=== PATIENT | male | born 1960 | race Caucasian/White ===

== ENCOUNTER → 2017-12-31 | Outpatient (CLI) | payer OTHER ==
[~2017-12-31] VITALS: Ht 182.9 cm; Wt 131.5 kg
[~2017-12-31] MED LIST: AMBIEN10 MG PO; GLUCOPHAGE1000 MG PO; LIPITOR40 MG PO; LITE COAT ASPI325 M1 PO; LOPRESSOR25 MG PO; MAGNESIUM400 M1 PO; POTASSIUM-9999 MG PO; TRULICITY1.5 MG/0.5 SC; ZANTAC300 MG PO
== END | disposition home or self-care (01) ==
LOC: AMB 12:30
PROVIDERS: Internal Medicine Gastroenterology
DX: K29.50 Unspecified chronic gastritis without bleeding (principal); K21.9 Gastro-esophageal reflux disease without esophagitis; K59.09 Other constipation; K62.1 Rectal polyp; F40.241 Acrophobia; I25.10 Atherosclerotic heart disease of native coronary artery without angina pectoris; Z95.1 Presence of aortocoronary bypass graft; E78.5 Hyperlipidemia, unspecified; E66.01 Morbid (severe) obesity due to excess calories; Z68.41 Body mass index [BMI] 40.0-44.9, adult; L40.9 Psoriasis, unspecified; G47.33 Obstructive sleep apnea (adult) (pediatric); E11.9 Type 2 diabetes mellitus without complications; Z82.49 Family history of ischemic heart disease and other diseases of the circulatory system; Z83.3 Family history of diabetes mellitus; Z80.8 Family history of malignant neoplasm of other organs or systems; Z82.0 Family history of epilepsy and other diseases of the nervous system; Z79.82 Long term (current) use of aspirin; Z79.84 Long term (current) use of oral hypoglycemic drugs; Z88.0 Allergy status to penicillin
CPT/HCPCS: 82948; 88305; 88342 TC